=== PATIENT | male | born 1955 | race Caucasian/White ===

== ENCOUNTER → 2018-04-30 | Outpatient (CLI) | payer BC | LOC: COL.RAD 07:10 | DX: S46.112A Strain of muscle, fascia and tendon of long head of biceps, left arm, initial encounter (principal); M75.112 Incomplete rotator cuff tear or rupture of left shoulder, not specified as traumatic ==

== ENCOUNTER → 2018-06-05 | Outpatient (CLI) | payer BC | LOC: COL.RAD 08:00 | DX: S43.432A Superior glenoid labrum lesion of left shoulder, initial encounter (principal) | CPT/HCPCS: J3301; Q9967 ==

== ENCOUNTER 2018-07-30 15:13 | Inpatient (IN) | payer BC ==
[~2018-07-30] VITALS: Ht 177.8 cm; Wt 90.1 kg
[2018-08-07] VITALS (11 sets, daily range): BP systolic 108–132; BP diastolic 65–80; PULSE 60–83; TEMP 97.6–98.6
[2018-08-07] MEDS ORDERED: XOPENEX HF0.045 MG/A IH (08:40)
[2018-08-07 08:43] LABS: BASO % 0.5 % (0.0-2.0); EOS # 0.5 (0.0-0.7); EOS % 7.6 % (0-4.0); GRAN # 2.9 (1.4-6.5); GRAN % 46.3 % (42.2-75.2); HEMATOCRIT 41.2 % (42.0-52.0); HEMOGLOBIN 14.2 g/dl (13.5-18.0); LYMPH # 2.1 (1.2-3.4); LYMPH % 32.4 % (20.0-51.0); MEAN CELL VOLUME 91 fl (80.0-100.0); MEAN CORPUSCULAR HEMOGLOBIN 31 pg (27.0-31.0); MEAN CORPUSCULAR HGB CONC 35 g/dl (33.0-37.0); MEAN PLATELET VOLUME 8.9 fl (7.4-10.4); MONO # 0.8 (0.1-0.6); MONO % 12.9 % (1.7-9.3); PLATELET COUNT 323 K/mm3 (130-400); RED BLOOD COUNT 4.52 M/mm3 (4.20-5.60); REDCELL DISTRIBUTION WIDTH-CV 13.7 % (11.5-14.5)
[2018-08-07 08:54] LABS: ALBUMIN 4.1 gm/dL (3.5-5.0); BILIRUBIN,TOTAL 0.7 mg/dL (0.0-1.0); CALCIUM 9.3 mg/dL (8.4-10.2); CREATININE, serum 0.62 mg/dL (0.66-1.25); POTASSIUM 3.9 mmol/L (3.4-5.0); TOTAL PROTEIN 7.2 gm/dL (6.4-8.2)
[2018-08-07 13:31] LABS: CALCIUM 8.6 mg/dL (8.4-10.2); CREATININE, serum 0.72 mg/dL (0.66-1.25); POTASSIUM 4.1 mmol/L (3.4-5.0)
[2018-08-08] VITALS (7 sets, daily range): BP systolic 111–137; BP diastolic 66–76; PULSE 65–72; TEMP 97.2–98.9
[2018-08-08 06:24] LABS: HEMATOCRIT 38.2 % (42.0-52.0)
[2018-08-08 06:35] LABS: MAGNESIUM 1.8 mg/dL (1.6-2.3); PHOSPHOROUS 3.9 mg/dL (2.5-4.5)
[2018-08-08 06:50] LABS: CREATININE, serum 0.67 mg/dL (0.66-1.25); POTASSIUM 4.8 mmol/L (3.4-5.0)
[2018-08-09 04:00] VITALS: BP 123/81; PULSE 64; TEMP 98
[2018-08-09] MEDS ORDERED: LOVENOX 4040 MG/0.4 SQ (07:04)
[2018-08-09 08:00] VITALS: BP 132/82; PULSE 66; TEMP 97.4
== END 2018-08-09 09:40 | disposition home or self-care (01) | DRG 330 ==
LOC: INPTSU 08-07 07:31 → SURG 08-07 09:30
PROVIDERS: Surgery
PROC: 8E0W4CZ Robotic Assisted Procedure of Trunk Region, Percutaneous Endoscopic Approach (ICD-10-PCS; 2018-08-07)
PROC: 0DTF4ZZ Resection of Right Large Intestine, Percutaneous Endoscopic Approach (ICD-10-PCS; principal; 2018-08-07 09:30)
DX: C18.0 Malignant neoplasm of cecum (principal); C77.2 Secondary and unspecified malignant neoplasm of intra-abdominal lymph nodes
CPT/HCPCS: A4314; A9284; J0690; J1100; J1170; J1650; J2370; J2405; J2704; J3010; J7120

== ENCOUNTER → 2019-03-31 | Outpatient (CLI) | payer BC ==
[~2019-03-31] MED LIST: LOVENOX 4040 MG/0.4 SQ; XOPENEX HF0.045 MG/A IH
== END ==
LOC: COL.RAD 15:16
DX: R10.9 Unspecified abdominal pain (principal); R19.7 Diarrhea, unspecified; R14.0 Abdominal distension (gaseous); Z98.1 Arthrodesis status

== ENCOUNTER → 2019-06-23 | Outpatient (CLI) | payer BC | LOC: COL.RAD 14:42 | DX: C18.0 Malignant neoplasm of cecum (principal); M89.9 Disorder of bone, unspecified; Z95.9 Presence of cardiac and vascular implant and graft, unspecified | CPT/HCPCS: Q9967 ==

== ENCOUNTER 2019-06-26 13:14 | Day surgery (SDC) | payer BC ==
[2019-06-26] VITALS (8 sets, daily range): BP systolic 118–151; BP diastolic 71–89; PULSE 59–73; TEMP 97.6–98.8
[~2019-06-26] VITALS: Ht 177.8 cm; Wt 82.0 kg
[2019-06-26] MEDS ORDERED: VITAMIN D31000 I1 PO (13:49)
[2019-06-26] MEDS ORDERED: NORCO 325 MG-51 TAB PO (13:50)
--- NOTE | 2019-06-26 14:25 | NUR ---
Patient reports that he has a history of MRSA although he was swabbed twice post treatment and both swabs were negative. One negative screen was here at this hospital and the other was at a physician office. Will maintain proper precautions, but no further swab at this time.
--- NOTE | 2019-06-26 15:25 | NUR ---
TO RM 8 PER CART FROM ENDOSCOPY FOLLOWING A ERCP. ALERT ORIENTED X3, TALKING WITH AND STAFF. RECEIVED FENTANYL FROM ENDOSCOPY UPON TRANSFER. PATIENT STATED IT HAS HELPED. COLOR JAUNDICED RESPIRATIONS EVEN AND NONLABORED. RECEIVED ICE WATER AND TAKING SIPS.
--- NOTE | 2019-06-26 15:38 | NUR ---
ORT CALLED TO FLOOR([facility]) BY TARAH SOLIS
--- NOTE | 2019-06-26 15:40 | NUR ---
RESTING AND TALKING WITH . DRINKING WATER AND TOLERATING WELL.
--- NOTE | 2019-06-26 15:51 | NUR ---
DR SALDANA TALKING WITH PATIENT AND .
--- NOTE | 2019-06-26 16:00 | NUR ---
PATIENT QUIETLY TEXTING ON PHONE. C/O PAIN /- DRINKING WATER AND TOLERATING WELL IV TO INT
--- NOTE | 2019-06-26 16:15 | NUR ---
PATIENT ARRIVED TO ROOM 343 VIA WHEELCHAIR FROM ENDOSCOPY. PATIENT IS A&O. VSS. JAUNDICE NOTED. PATIENT TOLERATING CLEAR LIQUIDS WITHOUT ANY COMPLAINTS OF N/V. CALL LIGHT WITHIN REACH. PATIENT DENIES ANY NEEDS AT THIS TIME.
--- NOTE | 2019-06-26 16:19 | NUR ---
PATIENT TRANSFERED TO [facility]- PER . PATIENT TOLERATED WELL UPDATED REPORT TO OSWALDO MELENDEZ RN PATIENT EATING ICE CHIPS AND RECEIVED A NEW WARM BLANKET
--- NOTE | 2019-06-26 19:03 | NUR ---
POST-OP VITAL SIGNS STABLE AND COMPLETE. REPORT GIVEN TO IRMA DIANE.
--- NOTE | 2019-06-26 19:30 | NUR ---
Discharge criteria met. Discharge instructions reivewed. VSS. L FA INT discontinued. Belongings sent. Pt escorted out.
== END 2019-06-26 19:30 | disposition home or self-care (01) ==
LOC: SDCO 13:14 → SURG 16:15 → SDCO 19:30
DX: C17.0 Malignant neoplasm of duodenum (principal); K83.1 Obstruction of bile duct; K83.8 Other specified diseases of biliary tract; K31.9 Disease of stomach and duodenum, unspecified; R17 Unspecified jaundice; J45.909 Unspecified asthma, uncomplicated; M19.90 Unspecified osteoarthritis, unspecified site; D64.9 Anemia, unspecified; Z92.21 Personal history of antineoplastic chemotherapy; Z85.038 Personal history of other malignant neoplasm of large intestine; Z90.49 Acquired absence of other specified parts of digestive tract
CPT/HCPCS: OP; C1769; C2625; J2704; J3010; J7030; Q9967

== ENCOUNTER 2019-08-31 10:36 | Inpatient (IN) | payer BC ==
[2019-08-31] VITALS (282 sets, daily range): BP systolic 94–120; BP diastolic 65–73; PULSE 112–126; TEMP 97.7–98.3; O2SAT 82–100
[~2019-08-31] VITALS: Ht 177.8 cm; Wt 120.3 kg
[~2019-08-31 10:36] MED LIST changes: +NORCO 325 MG-51 TAB PO; +VITAMIN D31000 I1 PO
[2019-08-31 11:45] LABS: HEMATOCRIT 43.4 % (42.0-52.0); HEMOGLOBIN 14.6 g/dl (13.5-18.0); MEAN CELL VOLUME 94 fl (80.0-100.0); MEAN CORPUSCULAR HEMOGLOBIN 32 pg (27.0-31.0); MEAN CORPUSCULAR HGB CONC 34 g/dl (33.0-37.0); MEAN PLATELET VOLUME 8.6 fl (7.4-10.4); PLATELET COUNT 334 K/mm3 (130-400); RED BLOOD COUNT 4.64 M/mm3 (4.20-5.60); REDCELL DISTRIBUTION WIDTH-CV 13.6 % (11.5-14.5)
[2019-08-31] MEDS ORDERED: FENTANYL 50MCG TD (11:47)
[2019-08-31] MEDS ORDERED: PULMICORT0.5 MG/2 M IH (11:48)
[2019-08-31] MEDS ORDERED: DECADRON 4MG TAB4 MG PO (11:50)
[2019-08-31] MEDS ORDERED: ZYRTEC 10MG10 MG PO (11:51)
[2019-08-31] MEDS ORDERED: SINGULAIR 110 MG/TAB PO (11:53)
[2019-08-31] MEDS ORDERED: ROXICODONE 55 MG/TAB PO (11:53)
[2019-08-31 11:56] LABS: ALBUMIN 3.2 gm/dL (3.5-5.0); CALCIUM 8.7 mg/dL (8.4-10.2); CREATININE, serum 0.59 (0.66-1.25); MAGNESIUM 1.8 mg/dL (1.6-2.3); POTASSIUM 4.9 mmol/L (3.4-5.0); TOTAL PROTEIN 6.7 gm/dL (6.4-8.2)
[2019-08-31 12:07] LABS: BAND 9 % (0-10); EOSINOPHIL 16 % (0-4); LYMPHOCYTE 15 % (20.0-51.0); METAMYELOCYTE 1 % (0-0); NEUTROPHILS 42 % (42.0-75.2); PLATELET ESTIMATE NORMAL (NORMAL)
[2019-08-31 18:46] LABS: CALCIUM 8.3 mg/dL (8.4-10.2); CREATININE, serum 0.5 (0.66-1.25)
[2019-08-31] MEDS ORDERED: [UNRECOGNIZED DRUG - OTHER] PO (19:11)
[2019-08-31 19:41] LABS: COLLECTION METHOD CLEAN CATCH
[2019-08-31 19:53] LABS: MUCOUS Present /lpf; PH 5 (5-8); SQUAMOUS EPITHELIAL None Seen /hpf; URINE APPEARANCE Clear; URINE BACTERIA None Seen /hpf; URINE BILIRUBIN Negative (NEGATIVE); URINE BLOOD Negative (NEGATIVE); URINE COLOR Amber; URINE GLUCOSE Negative (NEGATIVE); URINE KETONE 1+ (NEGATIVE); URINE LEUKOCYTE ESTERASE Negative (NEGATIVE); URINE NITRATE Negative (NEGATIVE); URINE PROTEIN(semi-quant) 1+ (NEGATIVE); URINE UROBILINOGEN >=4.0 mg/dL (NEGATIVE)
[2019-09-01] VITALS (532 sets, daily range): BP systolic 90–117; BP diastolic 64–82; PULSE 110–123; TEMP 97.6–98; O2SAT 86–100
[2019-09-01 05:11] LABS: HEMATOCRIT 39.1 % (42.0-52.0); HEMOGLOBIN 12.8 g/dl (13.5-18.0); MEAN CELL VOLUME 96 fl (80.0-100.0); MEAN CORPUSCULAR HEMOGLOBIN 31 pg (27.0-31.0); MEAN CORPUSCULAR HGB CONC 33 g/dl (33.0-37.0); MEAN PLATELET VOLUME 8.7 fl (7.4-10.4); PLATELET COUNT 318 K/mm3 (130-400); RED BLOOD COUNT 4.09 M/mm3 (4.20-5.60); REDCELL DISTRIBUTION WIDTH-CV 13.8 % (11.5-14.5)
[2019-09-01 05:22] LABS: CALCIUM 8.1 mg/dL (8.4-10.2); CREATININE, serum 0.51 (0.66-1.25); MAGNESIUM 1.7 mg/dL (1.6-2.3); PHOSPHOROUS 4.3 mg/dL (2.5-4.5); POTASSIUM 4.1 mmol/L (3.4-5.0)
[2019-09-01 05:29] LABS: EOSINOPHIL 8 % (0-4); HYPOCHROMIA 1+; LYMPHOCYTE 10 % (20.0-51.0); NEUTROPHILS 65 % (42.0-75.2); PLATELET ESTIMATE NORMAL (NORMAL)
--- NOTE | 2019-09-01 06:25 | NUR ---
Vancomycin Initial Dosing Pharmacy Note Ordering provider: Alexandre Whaltey MD Indication/duration: pneumonia Relevant comorbidities: LABS: CREA = 0.51, EST CrCl of >90 Recommendation: 1 g IV q 8 h Loading dose: 1 gram loading with another gram to be given 6 hours later Maintenance dose: 1 gram every 8 hours Trough goal: 15-20 ug/mL
--- NOTE | 2019-09-01 06:51 | NUR ---
Throughout the earlier part of the evening, patient experiencing intermittent shortness of breath but states that it is no worse than earlier. When this happens, PT HR noted to suddenly increase to the mid 140's and drop down to 110's just as quickly, PT O2 sats never drop. Called Dr. Lerner for consult and placed patient on BiPap. Patient reported reduced shortness of breath and states he feels better on it. ABG was not drawn after respiratory therapy attempted 4x. Updated pulmonolgy, was okay with getting an ABG later on. Patient refused MRSA swab because he states "he has been swabbed 8 times in previous stays here and only had MRSA 10 years ago. Has tested negative since." I looked through patient's microbiology lifetime history and could only find 1 MRSA nare swab which was negative for MRSA. Patient placed on contact precautions. Patient removed BiPap at 0615, stating that "my mouth is gettin' real dry and I feel like I got ran over. Muscles got used that haven't been in a long time." When clarifying what patient meant, he stated that he felt like he breathed better but was sore from the lung expansion, wanted to switch to NC temporarily. PT stayed at bedside entire night and assisted patient with repositioning, comfort, decreasing anxiety, and distracting from pain. Both patient and asked questions about POC and verbalized understanding.
--- NOTE | 2019-09-01 07:45 | NUR ---
Report given to IRMA Oakley.
--- NOTE | 2019-09-01 08:58 | NUR ---
Dr Cano in discussing plan of care. Provides in depth information regarding risks vs benefits of intubation. Patient being placed on bipap this am while asleep. Will get echo after patient has been allowed rest time per Dr Cano's request.
[2019-09-01 09:40] LABS: C-REACTIVE PROTEIN 18.4 mg/dL (0.0-0.9)
--- NOTE | 2019-09-01 14:38 | NUR ---
Met with pt and his this afternoon for consult regarding goals of care. Pt has done much research and study of his cancer, treatment, and planned care. He reports his care is based out of [facility] and that is where the primary information is obtained. He believes that this cancer can be dealt with and he is willing to push to fight his cancer and the side effects of treatment with all that is available to him. He is wanting to not have to discuss code status anymore! He is fighting this cancer and his supports his decision. he is very frustrated that his physicians here do not always listen to him--and it takes a great deal of work on his part to even talk about this. Pt is a full code--following his legal document instructions and will pursue whatever treatment will enable him to prolong his life.
--- NOTE | 2019-09-01 16:34 | NUR ---
Lacrosse Player met with the patient and his Hellen (ph#[phone]) to discuss discharge planning. Patient lives in [place] with his and his plan after discharge is to return home. Patient reports independence with ADL's and has crutches at home to utilize if needed. No other DME reported. Patient sees Dr. Toi Delgado for primary care and utilizes [facility] for prescriptions. Patient reports no issues obtaining medications. Patient states he has a DPOA-HC which is his , Hellen. SW took a copy and placed it in his chart. SW will continue to follow.
--- NOTE | 2019-09-01 19:05 | NUR ---
Call received from Dr Collins re Echo. Right Ventricle imaging indicates possible PE per Net Fisher. Discussed with Dr Gloria as he is currently in the unit. Pt has had a PE study during this hospital stay that was negative.
--- NOTE | 2019-09-01 19:30 | NUR ---
RECEIVED REPORT FROM IRMA REDMAN. PT SITTING UP IN BED. NO ACUTE S/S OF DISTRESS NOTED. PT ON 5L VIA NC. CALL LIGHT WITHIN REACH. AT BEDSIDE.
--- NOTE | 2019-09-01 23:35 | NUR ---
PT REQUESTS BREATHIGN TX, RT NOTIFIED. BIPAP TO BE PLACED AFTER TX.
[2019-09-02] VITALS (1136 sets, daily range): BP systolic 101–124; BP diastolic 70–91; PULSE 102–159; TEMP 97.6–98; O2SAT 76–100
--- NOTE | 2019-09-02 02:42 | NUR ---
NOTIFIED DR CAMPA ABOUT EPISODES OF SVT HR 150s THAT LAST 3-5 MINS AT A TIME. PER REPORT, PT HAS HAD PREVIOUS RUNS OF SVT NON SUSTAINED. PT DENIES ANY CP OR INCREASE SHOB DURING EPISODES. PT STATES "I FEEL NO DIFFERENT THAN I HAVE BEEN AND CAN'T EVEN TELL MY HEART IS RACING." DISCUSSED CT CHEST AND ECHO RESULTS WITH DR CAMPA. NEW ORDERS RECEIVED. BOLUS STARTED, SEE JAN.
[2019-09-02 03:19] LABS: BASO % 0.1 % (0.0-2.0); EOS % 0.1 % (0-4.0); GRAN % 87.6 % (42.2-75.2); LYMPH # 0.3 (1.2-3.4); LYMPH % 4.2 % (20.0-51.0); MEAN CELL VOLUME 96 fl (80.0-100.0); MEAN CORPUSCULAR HGB CONC 33 g/dl (33.0-37.0); MEAN PLATELET VOLUME 8.6 fl (7.4-10.4); MONO # 0.5 (0.1-0.6); MONO % 7.1 % (1.7-9.3); PLATELET COUNT 227 K/mm3 (130-400); RED BLOOD COUNT 3.44 M/mm3 (4.20-5.60); REDCELL DISTRIBUTION WIDTH-CV 13.9 % (11.5-14.5)
[2019-09-02 03:20] LABS: HEMATOCRIT 33.1 % (42.0-52.0); HEMOGLOBIN 10.8 g/dl (13.5-18.0); MEAN CORPUSCULAR HEMOGLOBIN 31 pg (27.0-31.0)
[2019-09-02 03:28] LABS: CALCIUM 7.1 mg/dL (8.4-10.2); CREATININE, serum 0.3 (0.66-1.25); POTASSIUM 3.2 mmol/L (3.4-5.0)
[2019-09-02 03:41] LABS: TROPONIN-I 0.057 ng/mL (0.000-0.035)
--- NOTE | 2019-09-02 03:46 | NUR ---
NOTIFIED DR CAMPA OF BOLUS FINISHED, TROP 0.057, AND EKG READING RESULTS. NOTIFIED THAT PT'S HR HAS BEEN IN THE 150s FOR ABOUT 15 MINUTES CURRENTLY. NEW ORDERS RECEIVED. EDUCATED PT AND ABOUT DIGOXIN AND ASA, BOTH VERBALIZED UNDERSTANDING. PT APPEARS TO BE AGGITATED AND ANXIOUS. PT REQUESTS TO HAVE SOME PRIVACY AFTER MEDICATION ADMINISTRATION SO HE CAN USE THE URINAL. HR REMAINS IN THE 150s AFTER DIGOXIN GIVEN.
--- NOTE | 2019-09-02 04:20 | NUR ---
NOTIFIED DR CAMPA OF DIGOXIN GIVEN AND HR REMIANS IN 150s WITH OCCASSIONAL 160s, LUNG SOUNDS INCREASED IN WHEEZING. NEW ORDERS, SEE MAR.
--- NOTE | 2019-09-02 04:45 | NUR ---
ATIVAN GIVEN PER ORDERS. DR CAMPA AT BEDSIDE FOR ASSESSMENT, EKG GIVEN TO MD. REMAINS AT BEDSIDE. PT STARTS TO GET DROWSY/LETHARGIC. ASSISTED BACK UP INTO BED. RR DECREASES FROM 27 TO 18. HR DECREASES TO 129. MD REQUESTS METOPROLO TO BE GIVEN ORDERED STILL AT THIS TIME. UPDATED ON POC AND MEDICATIONS BEING GIVEN, VERBALIZED UNDERSTANDING. IS TEARFUL AND ANXIOUS. PT APPEARS TO BE RESTING EASIER AT THIS TIME. RT AT BEDSIDE FOR TX. COTNINUOUS MONTIORING OF BP AND HR. HR DECREASES TO 100 AT THIS POINT. POX 96% ON 5L VIA NC, RR 16.
--- NOTE | 2019-09-02 05:08 | NUR ---
HEPARIN BOLUS AND GTT STARTED PER LOW DOSE PROTOCOL ORDERED. VERIFIED WITH ASA JOHNSON RN. PT CONTINUOUS TO REST EASILY. CALL LIGHT WITHIN REACH. REMAINS AT BEDSIDE.
[2019-09-02 05:56] LABS: INR 1.2 (0.8-3.0); PROTHROMBIN TIME 13.8 SECONDS (9.7-12.8)
--- NOTE | 2019-09-02 06:30 | NUR ---
PT CONTINUES TO SLEEP EASILY. VSS. AT BEDSIDE.
[2019-09-02 10:37] LABS: ARTERIAL BLD GAS O2 SATURATION 98.8 % (92-100); ARTERIAL BLD GAS TCO2 CT 22.7; ARTERIAL BLOOD GAS BASE EXCESS -2.5 (-2-2); ARTERIAL BLOOD GAS HCO3 21.6 meq/L (22-26); ARTERIAL BLOOD GAS pH 7.41 (7.35-7.45)
[2019-09-02 10:38] LABS: ARTERIAL BLOOD GAS PO2 141.6 mmHg (80-100)
--- NOTE | 2019-09-02 13:37 | NUR ---
Rounded with treatment team and with Dr Cano. Pt is still extremely short of breath, speaking in 1-2 word sentences and with hand gestures. Dr Cano did discuss intubation with him but at this point it may not be needed. Family is flying in to see pt this evening. Grandchildren are also coming. They are hopeful that the grandchildren will be allowed to visit under current circumstances.
[2019-09-02 13:40] LABS: TROPONIN-I 0.062 ng/mL (0.000-0.035)
--- NOTE | 2019-09-02 15:07 | NUR ---
Pallative care consult was ordered. See pallative care notes. banking services clerk will continue to follow.
[2019-09-03] VITALS (1018 sets, daily range): BP systolic 113–130; BP diastolic 80–92; PULSE 103–114; TEMP 96.9–97.7; O2SAT 79–100
[2019-09-03 05:30] LABS: BASO % 0.1 % (0.0-2.0); GRAN # 10.4 (1.4-6.5); LYMPH # 0.4 (1.2-3.4); MEAN CELL VOLUME 94 fl (80.0-100.0); MEAN CORPUSCULAR HEMOGLOBIN 31 pg (27.0-31.0); MEAN CORPUSCULAR HGB CONC 33 g/dl (33.0-37.0); MEAN PLATELET VOLUME 8.9 fl (7.4-10.4); MONO % 8.2 % (1.7-9.3); PLATELET COUNT 308 K/mm3 (130-400); RED BLOOD COUNT 3.85 M/mm3 (4.20-5.60); REDCELL DISTRIBUTION WIDTH-CV 14.3 % (11.5-14.5)
[2019-09-03 05:31] LABS: HEMATOCRIT 36.3 % (42.0-52.0)
[2019-09-03 05:41] LABS: CALCIUM 8.5 mg/dL (8.4-10.2); CREATININE, serum 0.39 (0.66-1.25); MAGNESIUM 1.9 mg/dL (1.6-2.3); POTASSIUM 4.1 mmol/L (3.4-5.0)
[2019-09-03 05:56] LABS: TROPONIN-I 0.063 ng/mL (0.000-0.035)
--- NOTE | 2019-09-03 06:00 | NUR ---
Patient has been on and off the BiPap throughout the night, wore BiPap approx. 3-4hrs. Encouraged to wear BiPap several times by both this RN and RT. Patient got up to BSC with assistance of RN and family, patient was fatigued and initially breathing heavy with moving, fairly unsteady gait but patient stated he enjoyed getting up and would like to do more. Family stayed at bedside the entire night.
--- NOTE | 2019-09-03 07:00 | NUR ---
Report given to IRMA Dey.
--- NOTE | 2019-09-03 08:56 | NUR ---
Initial visit; Patient and family thanked Vibration Technician for stopping and letting them know Spiritual Care is available at [facility].
[2019-09-03 11:01] LABS: MYCOPLASMA IGM ANTIBODIES Negative (Negative)
--- NOTE | 2019-09-03 15:07 | NUR ---
Palliative care will follow from distance as pt continues to want aggressive cares. He and his are limiting visitors today and will not disturb them in respect for their wishes.
--- NOTE | 2019-09-03 17:00 | NUR ---
Dr. Cano here to see patient. Requests that patient be allowed to bring own Zero [place]orah chair in from home for comfort and rest. Family to go and bring in.
--- NOTE | 2019-09-03 19:20 | NUR ---
RECEIVED REPORT FROM IRMA ISRAEL.
[2019-09-04] VITALS (860 sets, daily range): BP systolic 115–133; BP diastolic 80–91; PULSE 96–109; TEMP 97.1–98.3; O2SAT 83–100
[2019-09-04 05:07] LABS: BASO % 0.1 % (0.0-2.0); GRAN # 10.6 (1.4-6.5); GRAN % 89.6 % (42.2-75.2); HEMOGLOBIN 12.3 g/dl (13.5-18.0); LYMPH # 0.3 (1.2-3.4); LYMPH % 2.3 % (20.0-51.0); MEAN CELL VOLUME 94 fl (80.0-100.0); MEAN CORPUSCULAR HEMOGLOBIN 32 pg (27.0-31.0); MEAN CORPUSCULAR HGB CONC 33 g/dl (33.0-37.0); MEAN PLATELET VOLUME 8.7 fl (7.4-10.4); MONO # 0.9 (0.1-0.6); MONO % 7.3 % (1.7-9.3); PLATELET COUNT 279 K/mm3 (130-400); RED BLOOD COUNT 3.91 M/mm3 (4.20-5.60); REDCELL DISTRIBUTION WIDTH-CV 14.3 % (11.5-14.5)
[2019-09-04 05:08] LABS: HEMATOCRIT 36.8 % (42.0-52.0)
[2019-09-04 05:21] LABS: CALCIUM 8.4 mg/dL (8.4-10.2); CREATININE, serum 0.35 (0.66-1.25); MAGNESIUM 1.8 mg/dL (1.6-2.3); POTASSIUM 3.3 mmol/L (3.4-5.0)
--- NOTE | 2019-09-04 07:36 | NUR ---
GAVE REPORT TO IRMA BOYCE.
--- NOTE | 2019-09-04 07:44 | NUR ---
Report receive from Renay SOLIS and care resumed.
--- NOTE | 2019-09-04 08:22 | NUR ---
PATIENT HAS LABORED BREATHING hIGH FLOW NASAL CANNULA 40%, BREATHING txS PROVIDED
--- NOTE | 2019-09-04 17:55 | NUR ---
PATIENT RESTING COMFORTABLE IN CHAIR, LIKES FAMILY WITH IN AREA AT ALL TIMES, LOVES THIER PARTICIPATION. THEY HAVE BEEN NOTIFIED ABOUT VISITOR RULES WITH EASY UNDERSTANDING
--- NOTE | 2019-09-04 19:05 | NUR ---
NURSES REPORT TO GETACHEW SOLIS
--- NOTE | 2019-09-04 19:40 | NUR ---
Patient assessment completed and charted at this time, please see documentation for details. Patient resting in chair, respiratory has just administered breathing treatment for comfort. Patient has no new complaints or issues at this time.
[2019-09-05] VITALS (732 sets, daily range): BP systolic 117–134; BP diastolic 82–98; PULSE 91–109; TEMP 97.4–98.4; O2SAT 90–100
[2019-09-05 06:46] LABS: BASO % 0.1 % (0.0-2.0); GRAN # 10.1 (1.4-6.5); GRAN % 89.5 % (42.2-75.2); LYMPH # 0.3 (1.2-3.4); LYMPH % 2.6 % (20.0-51.0); MEAN CELL VOLUME 96 fl (80.0-100.0); MEAN CORPUSCULAR HEMOGLOBIN 31 pg (27.0-31.0); MEAN CORPUSCULAR HGB CONC 33 g/dl (33.0-37.0); MEAN PLATELET VOLUME 9.1 fl (7.4-10.4); MONO # 0.8 (0.1-0.6); MONO % 7.2 % (1.7-9.3); PLATELET COUNT 272 K/mm3 (130-400); RED BLOOD COUNT 3.84 M/mm3 (4.20-5.60); REDCELL DISTRIBUTION WIDTH-CV 14.4 % (11.5-14.5)
[2019-09-05 06:59] LABS: CALCIUM 8.6 mg/dL (8.4-10.2); CREATININE, serum 0.34 (0.66-1.25); POTASSIUM 3.6 mmol/L (3.4-5.0)
[2019-09-05 07:00] LABS: HEMATOCRIT 36.9 % (42.0-52.0)
--- NOTE | 2019-09-05 08:42 | NUR ---
Sitting up in chair, in room rubbing patient's feet. Unable to flush or draw from Purple port on PICC line
[2019-09-05 09:51] LABS: C-REACTIVE PROTEIN 2.8 mg/dL (0.0-0.9)
--- NOTE | 2019-09-05 14:38 | NUR ---
Pt's wanted information concerning Shelter Care. Medicare.gov list given to pt/ so they could go online to compare facilities. Dr. Cano is wanting to wait for 72 hours prior to making the decision for LTAC-however pt wanted information.
--- NOTE | 2019-09-05 20:45 | NUR ---
CHANGED WATER IN AIRVO. PT IS IN NO DISTRESS WILL CONTINUE TO MONITOR AND ASSESS.
[2019-09-05 22:32] LABS: RHEUMATOID FACTOR-SCREEN <15 IU/mL (0-29)
[2019-09-06] VITALS (785 sets, daily range): BP systolic 127–129; BP diastolic 82–85; PULSE 72–114; TEMP 97.7–98; O2SAT 88–100
[2019-09-06 05:25] LABS: HEMATOCRIT 38.7 % (42.0-52.0); HEMOGLOBIN 12.8 g/dl (13.5-18.0); MEAN CELL VOLUME 95 fl (80.0-100.0); MEAN CORPUSCULAR HEMOGLOBIN 31 pg (27.0-31.0); MEAN CORPUSCULAR HGB CONC 33 g/dl (33.0-37.0); MEAN PLATELET VOLUME 8.8 fl (7.4-10.4); PLATELET COUNT 257 K/mm3 (130-400); RED BLOOD COUNT 4.09 M/mm3 (4.20-5.60); REDCELL DISTRIBUTION WIDTH-CV 14.3 % (11.5-14.5)
[2019-09-06 05:33] LABS: CALCIUM 8.7 mg/dL (8.4-10.2); CREATININE, serum 0.33 (0.66-1.25); MAGNESIUM 1.9 mg/dL (1.6-2.3)
[2019-09-06 05:57] LABS: NEUTROPHILS 97 % (42.0-75.2); PLATELET ESTIMATE NORMAL (NORMAL)
--- NOTE | 2019-09-06 08:00 | NUR ---
Shift assessment complete at this time. Plan of care reviewed at bedside with patient et spouse. Additional time taken to address any other needs or concerns. Vitals stable at this time. Pt reports tolerabe abdominal pain at a 4/10 severity and declines the need for further intervention at this time. Bed in low position, call light within reach. Pt denies any other discomforts. Will continue to monitor.
--- NOTE | 2019-09-06 09:43 | NUR ---
Dr. Moran at bedside.
--- NOTE | 2019-09-06 12:00 | NUR ---
Pt sleeping comfortably in bed. Vitals stable at this time. Pt reports tolerabel abdomen pain at this time and declines intervention. Bed in low position, call light within reach. Will continue to monitor.
--- NOTE | 2019-09-06 16:00 | NUR ---
Pt resting comfortably in bed. Vitals stable at this time. Pt reports tolerable pain at a 4/10 severity and declines intervention for pain at this time. Bed in low position, call light within reach, will continue to monitor.
--- NOTE | 2019-09-06 19:16 | NUR ---
Bedside report given to IRMA Rosario.
[2019-09-07] VITALS (648 sets, daily range): BP systolic 111–133; BP diastolic 81–97; PULSE 100–112; TEMP 97.6–98.7; O2SAT 79–100
[2019-09-07 05:33] LABS: HEMATOCRIT 40.4 % (42.0-52.0); HEMOGLOBIN 13.2 g/dl (13.5-18.0); MEAN CELL VOLUME 96 fl (80.0-100.0); MEAN CORPUSCULAR HEMOGLOBIN 31 pg (27.0-31.0); MEAN CORPUSCULAR HGB CONC 33 g/dl (33.0-37.0); MEAN PLATELET VOLUME 9.4 fl (7.4-10.4); PLATELET COUNT 228 K/mm3 (130-400); RED BLOOD COUNT 4.22 M/mm3 (4.20-5.60); REDCELL DISTRIBUTION WIDTH-CV 14.5 % (11.5-14.5)
[2019-09-07 05:45] LABS: CALCIUM 8.6 mg/dL (8.4-10.2); CREATININE, serum 0.31 (0.66-1.25); POTASSIUM 3.9 mmol/L (3.4-5.0)
[2019-09-07 06:42] LABS: LYMPHOCYTE 2 % (20.0-51.0); NEUTROPHILS 88 % (42.0-75.2); PLATELET ESTIMATE NORMAL (NORMAL)
--- NOTE | 2019-09-07 07:00 | NUR ---
BEDSIDE REPORT RECEIVED FROM IRMA CHILEL. PATIENT LYING IN BED WITH NO COMPLAINTS. HE IS CURRENT ON AIRVO HEATED HIFLOW AT FI02 OF 40% WITH 40L/MIN FLOW. PATIENT HAS NO COMPLAINTS. WILL CONTINUE TO MONITOR.
--- NOTE | 2019-09-07 14:41 | NUR ---
[facility] CALLED AT THIS TIME WITH CONSULT. MESSAGE LEFT WITH [facility] TO HAVE CARY FROM [facility] TO COME EVALUATE PATIENT TOMORROW.
--- NOTE | 2019-09-07 14:45 | NUR ---
PATIENT REPORT GIVEN TO IRMA REDMAN
[2019-09-07 16:32] LABS: ANA SCREEN with REFLEX Negative (Negative)
--- NOTE | 2019-09-07 19:14 | NUR ---
Patient's in room describing frustration with patient's continued decreased appetite, appearance of weight loss, and concern for length of time that thrush may have been untreated. and patient feel that they would like to transfer to [facility] to seek additional opinions and examine whether other treatment options may be viable and available. has been attempting to arrange transfer on her own, RN encourages to wait for safety, COBRA regs etc until AM. Pt and agree that this is best.
[2019-09-08] VITALS (200 sets, daily range): BP systolic 106–119; BP diastolic 83–94; PULSE 100–103; TEMP 98–99; O2SAT 91–99
[2019-09-08 05:36] LABS: HEMATOCRIT 43.6 % (42.0-52.0); HEMOGLOBIN 14.3 g/dl (13.5-18.0); MEAN CELL VOLUME 96 fl (80.0-100.0); MEAN CORPUSCULAR HEMOGLOBIN 32 pg (27.0-31.0); MEAN CORPUSCULAR HGB CONC 33 g/dl (33.0-37.0); MEAN PLATELET VOLUME 9.4 fl (7.4-10.4); PLATELET COUNT 218 K/mm3 (130-400); RED BLOOD COUNT 4.54 M/mm3 (4.20-5.60); REDCELL DISTRIBUTION WIDTH-CV 14.5 % (11.5-14.5)
[2019-09-08 05:53] LABS: HYPOCHROMIA 1+; LYMPHOCYTE 1 % (20.0-51.0); NEUTROPHILS 95 % (42.0-75.2); PLATELET ESTIMATE NORMAL (NORMAL)
[2019-09-08 05:54] LABS: CALCIUM 8.6 mg/dL (8.4-10.2); CREATININE, serum 0.31 (0.66-1.25); POTASSIUM 3.7 mmol/L (3.4-5.0)
--- NOTE | 2019-09-08 08:15 | NUR ---
PICC intact left upper arm with sterile technique left upper arm dressing change done with insertion site cleansed with chloraprep x 1, chlorhexidine impregnated disk applied, skin prep, stat lock, and tegaderm applied. no signs or symptoms of IV complications noted. no concerns voiced. re-wrapped with evan to protect catheter.
[2019-09-08 10:26] LABS: PHOSPHOROUS 3.7 mg/dL (2.5-4.5)
--- NOTE | 2019-09-08 13:53 | NUR ---
The patient's family has requested to be transfered to [facility]. manager of creative services will continue to follow.
--- NOTE | 2019-09-08 15:00 | NUR ---
The patient is to be tranferred to [facility] today, 09/08. There are no additional needs at this time.
--- NOTE | 2019-09-08 15:20 | NUR ---
Report called to [facility]. Receiving nurse to be Tu, phone report provided to IRMA Wilder. This RN's contact info given. Pt to transfer via helicopter due to high oxygen flow requirements that EMS is unable to provide for the duration/distance. All patient's family members notified by his front office agent. RN addresses all questions and updates patient with what to expect prior to and during transfer. RN requests one time hydromorphone to give immediately prior to transport-see orders.
--- NOTE | 2019-09-08 16:00 | NUR ---
DC to [facility] accompanied by [facility] staff via cart. Bedside report provided to flight crew. All questions addressed, paperwork and echo disc sent with patient, along with patient's phone and siderographer. All other imaging clouded to [facility] by Radiology staff. All other belongings (except patient's own chair) sent with his adult parole officer. Pt's family member in to collect chair.
[2019-09-09 16:41] LABS: ANGIOTENSIN CONVERTING ENZYME 11 U/L (16 - 85)
[2019-09-10 15:02] LABS: ANTI-JO1 AUTOANTIBODY XXX
== END 2019-09-08 16:00 | disposition short-term general hospital (02) | DRG 871 ==
LOC: COL.ER 10:36 → ICU 12:50
PROVIDERS: Emergency Medicine; Family Medicine; Internal Medicine Critical Care Medicine; Internal Medicine Pulmonary Disease; Nurse Practitioner Family; Physician Assistant; Student in an Organized Health Care Education/Training Program; ADMIT Hospitalist
PROC: 02HV33Z Insertion of Infusion Device into Superior Vena Cava, Percutaneous Approach (ICD-10-PCS; principal; 2019-09-01)
DX: A41.9 Sepsis, unspecified organism (principal); J18.9 Pneumonia, unspecified organism; J96.01 Acute respiratory failure with hypoxia; I21.A1 Myocardial infarction type 2; B37.81 Candidal esophagitis; E44.0 Moderate protein-calorie malnutrition; C78.00 Secondary malignant neoplasm of unspecified lung; C79.70 Secondary malignant neoplasm of unspecified adrenal gland; C79.51 Secondary malignant neoplasm of bone; E87.1 Hypo-osmolality and hyponatremia; J84.9 Interstitial pulmonary disease, unspecified; R59.0 Localized enlarged lymph nodes; I27.20 Pulmonary hypertension, unspecified; E87.6 Hypokalemia; T45.1X5A Adverse effect of antineoplastic and immunosuppressive drugs, initial encounter; J45.909 Unspecified asthma, uncomplicated; A49.3 Mycoplasma infection, unspecified site; R00.0 Tachycardia, unspecified; M54.9 Dorsalgia, unspecified; Z79.891 Long term (current) use of opiate analgesic; Z99.81 Dependence on supplemental oxygen; Z96.651 Presence of right artificial knee joint; Z85.038 Personal history of other malignant neoplasm of large intestine; Z86.14 Personal history of Methicillin resistant Staphylococcus aureus infection
CPT/HCPCS: 99223-AI; 99232-AI; 99233-AI; 99239; C1751; J1160; J1170; J1450; J1644; J1650; J1940; J2060; J2543; J2920; J2930; J3370; J3475; J3480; J7030; J7040; J7050; Q9967